=== PATIENT | male | born 1965 | race Caucasian/White ===

== ENCOUNTER 2017-12-19 13:51 | Emergency (ER) | payer OTHER ==
[~2017-12-19 13:51] MED LIST: HYDR10TA16 PO; Z.0.NO CURRENT MEDS
[2017-12-19 14:25] VITALS: BP 121/64; PULSE 76; RESP 18; TEMP 98.3; O2SAT 96
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
[2017-12-19 15:32] LABS: AUTOMATED NEUTROPHIL # 9.4 TH/MM3 (1.8-7.7); BASOPHIL % 0.3 % (0.0-2.0); EOSINOPHIL # 0.1 TH/MM3 (0-0.4); EOSINOPHIL % 0.8 % (0.0-4.0); HEMATOCRIT 38.5 % (39.0-51.0); HEMOGLOBIN 13.5 GM/DL (13.0-17.0); LYMPH % 13.1 % (9.0-44.0); LYMPHOCYTE # 1.5 TH/MM3 (1.0-4.8); MEAN CELL VOLUME 94.6 FL (80.0-100.0); MEAN CORPUSCULAR HEMOGLOBIN 33.3 PG (27.0-34.0); MEAN CORPUSCULAR HGB CONC 35.2 % (32.0-36.0); MEAN PLATELET VOLUME 7.7 FL (7.0-11.0); MONOCYTE # 0.7 TH/MM3 (0-0.9); NEUT % 79.8 % (16.0-70.0); PLATELET COUNT 276 TH/MM3 (150-450); RED BLOOD COUNT 4.07 MIL/MM3 (4.50-5.90); RED CELL DISTRIBUTION WIDTH 12.6 % (11.6-17.2); WHITE BLOOD COUNT 11.8 TH/MM3 (4.0-11.0)
[2017-12-19 15:51] LABS: BACTERIA, URINE MANY /hpf; BILIRUBIN, URINE NEG (NEG); BLOOD, URINE SMALL (NEG); GLUCOSE,URINE NEG (NEG); HYALINE CAST, URINE 1 /lpf (RARE); KETONE, URINE NEG (NEG); MUCUS URINE FEW /lpf (OCC); NITRITE,URINE NEG (NEG); PH, URINE 7.5 (5.0-8.5); URINE COLOR YELLOW (YELLW/STRAW); URINE LEUKOCYTE ESTERASE LARGE (NEG)
[2017-12-19] MEDS ORDERED: cefTRIAXone INJ 1,000 MG in SODIUM CHLORIDE 0.9% INJ 100 ML IV ONE (16:00)
[2017-12-19 16:02] VITALS: BP 131/83; PULSE 84; RESP 18; O2SAT 96
[2017-12-19 16:06] LABS: BICARBONATE 25.8 MEQ/L (21.0-32.0); BLOOD UREA NITROGEN 18 MG/DL (7-18); CALCIUM 7.3 MG/DL (8.5-10.1); CHLORIDE 114 MEQ/L (98-107); CREATININE 0.79 MG/DL (0.60-1.30); GLOMERULAR FILTRATION RATE 104 ML/MIN (>89); GLUCOSE,RANDOM 94 MG/DL (74-106); MAGNESIUM 1.6 MG/DL (1.5-2.5); SODIUM (NA) 145 MEQ/L (136-145)
[2017-12-19 16:13] LABS: TROPONIN I LESS THAN 0.02 NG/ML (0.02-0.05)
[2017-12-19 16:25] LABS: CALCIUM-PROTEIN CORRECTED 7.7 MG/DL (8.5-10.1); TOTAL PROTEIN 6.3 GM/DL (6.4-8.2)
[2017-12-19] MEDS ORDERED: CALCIUM GLUCONATE INJ 1 GM in DEXTROSE 5% IN WATER 100ML INJ 100 ML IV ONE ×2 (17:00)
[2017-12-19] MEDS ORDERED: POTASSIUM CHLORIDE 25 MEQ EFFERVESCENT TAB PO ONE (17:00)
[2017-12-19 17:05] VITALS: BP 129/80; PULSE 79; RESP 18; O2SAT 99
[2017-12-19] MEDS ORDERED: BACT800T5 PO (17:22)
--- NOTE | 2017-12-20 13:25 | EKG ---
Date Performed: 12/19/2017 Time Performed: 15:12:45 PTAGE: 52 years EKG: Sinus rhythm POSSIBLE RIGHT VENTRICULAR CONDUCTION DELAY Since the prior tracing, there has been no significant c hange BORDERLINE ECG PREVIOUS TRACING : 01/13/2009 12.26 DOCTOR: Bhupendra Scott Interpretating Date/Time 12/20/2017 13:23:59
== END 2017-12-19 18:19 ==
LOC: NEPE 13:51 → NEDAMB 18:19
DX: N39.0 Urinary tract infection, site not specified (principal); B96.1 Klebsiella pneumoniae [K. pneumoniae] as the cause of diseases classified elsewhere; E87.6 Hypokalemia; F17.200 Nicotine dependence, unspecified, uncomplicated; Z87.820 Personal history of traumatic brain injury
CPT/HCPCS: 80048; 81001; 83735; 84155; 84484; 85025; 87077; 87086; 87186; 93005; 96374; 96376; 99284; J0610; J0696